=== PATIENT | male | born 1940 | race African-American/Black ===

== ENCOUNTER 2021-03-27 05:58 | Emergency (ER) | payer BC, MEDICAID ==
[~2021-03-27] VITALS: Ht 175.3 cm; Wt 84.0 kg
[2021-03-27] MEDS ORDERED: TOPUD PO (07:30)
[2021-03-27 07:38] VITALS: BP 156/90
== END 2021-03-27 07:38 | disposition home or self-care (01) ==
LOC: ER 06:16
DX: K40.90 Unilateral inguinal hernia, without obstruction or gangrene, not specified as recurrent (principal); I49.9 Cardiac arrhythmia, unspecified
CPT/HCPCS: 93005; 99283